=== PATIENT | male | born 1950 | race Caucasian/White ===

== ENCOUNTER 2020-05-22 08:03 | Observation (INO) | payer MEDICARE, MEDICAID ==
[~2020-05-22] VITALS: Ht 170.2 cm; Wt 67.8 kg
[~2020-05-22 08:03] MED LIST: ASPI-1111 PO; ATOR20TA65 PO; CARB1TAB35 PO; CLOP75TA32 PO; FINA-27 PO; GABA-1181 PO; HYDR-3421 PO; ICOS1CAP PO; LUBI24CA2 PO; METF-446 PO; METO-408 PO; MIRT30 PO; SODIUM CHLORIDE 0.9% 1,000 ML ONE; TAMS-13 PO; ZIPR40CA2 PO
[2020-05-22] MEDS ORDERED: SODIUM CHLORIDE 0.9% 1,000 ML IV ONE (09:00)
[2020-05-22 09:11] LABS: GLUCOMETER DEV NAME(LOC) SDS.; GLUCOSE,POINT OF CARE 126 MG/DL (70-110)
[2020-05-22 09:20] LABS: INR 1.1 (0.9-1.1); PROTHROMBIN TIME 11.3 SEC (9.4-11.6)
[2020-05-22] MEDS ORDERED: PRIM50 PO (09:43)
[2020-05-22 10:23] VITALS: BP 134/67
[2020-05-22] MEDS ORDERED: SODIUM BICARBONATE 50 MEQ/50 ML VIAL ONE (10:26)
[2020-05-22] MEDS ORDERED: LIDOCAINE/PF 1% 30 ML VIAL ONE (10:26)
[2020-05-22] MEDS ORDERED: HEPARIN SODIUM 1000 UNITS/NS 1,000 ML ONE (10:26)
[2020-05-22] MEDS ORDERED: IOHEXOL 300 MG/ML 150 ML VIAL ONE (10:26)
[2020-05-22] MEDS ORDERED: FentaNYL CITRATE-PF 100 MCG/2 ML VIAL ONE (10:28)
[2020-05-22] MEDS ORDERED: MIDAZOLAM HCL 2 MG/2 ML VIAL ONE (10:28)
[2020-05-22] MEDS ORDERED: IOHEXOL 300 MG/ML 150 ML VIAL IARTER ONE (10:45)
[2020-05-22] MEDS ORDERED: HEPARIN SODIUM 1000 UNITS/NS 1,000 ML IARTER ONE (10:45)
[2020-05-22] MEDS ORDERED: FentaNYL CITRATE-PF 100 MCG/2 ML VIAL IVP ONE (10:45)
[2020-05-22] MEDS ORDERED: MIDAZOLAM HCL 2 MG/2 ML VIAL IVP ONE (10:45)
[2020-05-22] MEDS ORDERED: LIDOCAINE 1% 30 ML/SOD BICARB 8.4% 4 ML SQ ONE (10:45)
[2020-05-22] MEDS ORDERED: TICAGRELOR 90 MG TABLET ONE (10:56)
[2020-05-22] MEDS ORDERED: ASPIRIN 81 MG CHEWABLE TABLET ONE (10:56)
[2020-05-22] MEDS ORDERED: IOHEXOL 300 MG/ML 100 ML VIAL ONE (11:02)
[2020-05-22] MEDS ORDERED: ASPIRIN 81 MG CHEWABLE TABLET PO ONE (11:15)
[2020-05-22] MEDS ORDERED: TICAGRELOR 90 MG TABLET PO ONE (11:15)
[2020-05-22] MEDS ORDERED: HEPARIN SODIUM,PORCINE 5,000 UNITS/ML VIAL IVP ONE ×2 (11:15→11:30)
[2020-05-22] MEDS ORDERED: IOHEXOL 300 MG/ML 50 ML VIAL ONE (11:31)
[2020-05-22 11:44] VITALS: BP 128/67
[2020-05-22] MEDS ORDERED: HydrOXYzine HCL 25 MG TABLET PO PRN (14:30)
[2020-05-22] MEDS ORDERED: DEXTROSE 50%-WATER 25 GM/50 ML SYRINGE IVP PRN (16:00)
[2020-05-22] MEDS: CARBIDOPA/LEVODOPA 25-100 MG TABLET PO SCH ×2 (16:00→21:37)
[2020-05-22 16:21] VITALS: BP 138/81
[2020-05-22] MEDS ORDERED: LUBIPROSTONE 24 MCG CAPSULE PO SCH (17:30)
[2020-05-22 17:36] LABS: GLUCOMETER DEV NAME(LOC) 5N.1B; GLUCOSE,POINT OF CARE 150 MG/DL (70-110)
[2020-05-22] MEDS: INSULIN LISPRO 100 UNITS/ML SQ PRN ×2 (17:39→21:45)
[2020-05-22] MEDS: GABAPENTIN 300 MG CAPSULE PO SCH ×2 (17:39→21:39)
[2020-05-22] MEDS ORDERED: TICA90TA PO (19:27)
[2020-05-22 19:33] VITALS: BP 120/71
[2020-05-22] MEDS ORDERED: TICAGRELOR 90 MG TABLET PO SCH (21:00)
[2020-05-22] MEDS ORDERED: ATORVASTATIN CALCIUM 40 MG TABLET PO SCH (21:00)
[2020-05-22] MEDS ORDERED: MIRTAZAPINE 30 MG TABLET PO SCH (21:00)
[2020-05-22] MEDS ORDERED: ZIPRASIDONE HCL 40 MG CAPSULE PO SCH (21:00)
[2020-05-22] MEDS ORDERED: ASPIRIN 81 MG DR TABLET PO SCH (21:00)
[2020-05-22] MEDS ORDERED: PRIMIDONE 50 MG TABLET PO SCH (21:00)
[2020-05-22 21:42] LABS: GLUCOMETER DEV NAME(LOC) 5N.1B; GLUCOSE,POINT OF CARE 234 MG/DL (70-110)
[2020-05-22 23:18] VITALS: BP 101/60
[2020-05-23 05:10] VITALS: BP 115/71
[2020-05-23] MEDS ORDERED: ICOS1CAP PO ×3 (06:05→06:16)
[2020-05-23] MEDS ORDERED: TICA90TA PO (06:08)
[2020-05-23 07:34] LABS: GLUCOMETER DEV NAME(LOC) 5N.1B; GLUCOSE,POINT OF CARE 119 MG/DL (70-110)
[2020-05-23] MEDS ORDERED: ICOSAPENT ETHYL 1 GM PO SCH (08:00)
[2020-05-23] MEDS ORDERED: TAMSULOSIN HCL 0.4 MG CAPSULE PO SCH (09:00)
[2020-05-23] MEDS ORDERED: FINASTERIDE 5 MG TABLET PO SCH (09:00)
[2020-05-23] MEDS ORDERED: METOPROLOL SUCCINATE 25 MG ER TABLET PO SCH (09:00)
[2020-05-23] MEDS ORDERED: MIRTAZAPINE 15 MG TABLET PO SCH (21:00)
== END 2020-05-23 06:40 | disposition home or self-care (01) ==
LOC: CATHLAB 08:03 → INTOOBSV 12:46 → 5S 12:46
PROVIDERS: ADMIT Hospitalist; ATTEND Hospitalist
DX: I25.10 Atherosclerotic heart disease of native coronary artery without angina pectoris (principal); E11.9 Type 2 diabetes mellitus without complications; E78.5 Hyperlipidemia, unspecified; I10 Essential (primary) hypertension; N40.0 Benign prostatic hyperplasia without lower urinary tract symptoms; Z79.899 Other long term (current) drug therapy; Z79.84 Long term (current) use of oral hypoglycemic drugs; Z79.82 Long term (current) use of aspirin
CPT/HCPCS: 36415; 82962 ×2; 85610; 85730; 87081; 92920; 92928; 93005; 93458; 96372; 99219 ×2; C1769; C1874; C1887; J1644; J2250; J3010; J3490 ×2; J7030; Q9967 ×3